=== PATIENT | female | born 2000 | race Caucasian/White ===

== ENCOUNTER 2018-10-02 16:36 | Emergency (ER) | payer OTHER ==
[~2018-10-02 16:36] MED LIST: ONDA4TAB97 PO; OXYC-865 PO; PRED20TA6 PO
--- NOTE | 2018-10-02 16:48 | ER Report ---
History and Physical Time Seen By MD: 16:48 Hx. of Stated Complaint: lump in armpit HPI/ROS CHIEF COMPLAINT: Lump in left axilla HISTORY OF PRESENT ILLNESS: 18-year-old female patient presents to the emergency room with complaint of a lump in her left axilla. Patient states that she has had this for the past 2 weeks. She states over the last week the pain has gotten worse. She states the pain started to run down the left arm. She states she has pain with movement of the arm. She denies having any numbness tingling in the fingers. She states she is taken ibuprofen with no improvement. Patient states she has use warm compresses which has seemed to help a little bit. Allergies: Coded Allergies: acetaminophen (Verified Allergy, Intermediate, rash, 10/02/18) oxycodone (Verified Allergy, Intermediate, rash, 10/02/18) Home Meds Active Scripts Cephalexin 500 Mg Tab (KEFLEX 500 MG TAB) 500 Mg Tablet, 500 MG PO Q6H, #28 TAB Prov:JUAN STOKES 10/02/18 Discontinued Scripts Prednisone (PREDNISONE) 20 Mg Tablet, 60 MG PO QDAY, #12 Prov:CUCA LIZ MD 11/01/16 Ondansetron Hcl (ZOFRAN) 4 Mg Tablet, 4 MG PO Q4H PRN for NAUSEA/VOMITING, #12 TAB Prov:NAY AMAYA DO 10/31/16 Oxycodone Hcl/Acetaminophen (PERCOCET 5-325 MG TABLET) 1 Each Tablet, 1 EACH PO Q4H PRN for PAIN, #12 TAB Prov:NAY AMAYA DO 10/31/16 Past Medical/Surgical History Patient denies any pertinent medical or surgical history. Reviewed Nurses Notes: Yes Hx Substance Use Disorder: No Constitutional Vital Sign - Last 24 Hours 10/02/18 10/02/18 10/02/18 10/02/18 16:42 16:42 16:45 17:00 Temp 98.5 Pulse 88 Resp 16 B/P (MAP) 130/75 (93) 130/75 108/72 (84) 106/74 (85) Pulse Ox 95 O2 Delivery Room Air 10/02/18 10/02/18 17:06 17:15 Pulse 85 B/P (MAP) 95/72 (80) Pulse Ox 97 Physical Exam General appearance: Alert no distress. Respiratory: Chest is non tender, lungs are clear to auscultation. Cardiac: Regular rate and rhythm. Skin: Patient does have a lump to the left axilla, no erythema noted around it, it is tender to touch. DIFFERENTIAL DIAGNOSIS: After history and physical exam differential diagnosis was considered for abscess, sebaceous cyst, enlarged lymph node. Medical Decision Making ED Course/Re-evaluation ED Course Patient was admitted to an exam room, history and physical were obtained. Differential diagnoses were considered. On examination patient does have a lump in the left axilla. It is tender to the touch. That was opened and drained as described below. Patient tolerated procedure well. A dressing was placed using a 2 x 2 gauze, bacitracin and covered with a Tegaderm. Patient did have a small amount of bleeding after dressing was placed. After time he discharge instructions I did go in and reevaluated, there is no additional bleeding noted. We will go ahead and discharge patient home at this time. Patient will be treated with Keflex 500 mg 4 times a day for 7 days. She is follow-up with her primary care provider with any concerns. She is to return to emergency room with any signs of infection. The patient and her significant other verbalized understanding and agreement with plan. Procedure: Abscess drainage. The patient's abscess was located on the left axilla. I obtained verbal consent from the patient to drain the abscess who was informed about the possibility of bleeding and pain. The abscess was incised with a scalpel and small amount of purulent drainage and some sebaceous material was expressed. The patient tolerated the procedure well. The procedure was performed by myself. Decision to Disposition Date: Oct 02, 2018 Decision to Disposition Time: 17:20 Depart Departure Latest Vital Signs Vital Signs Date Time Temp Pulse Resp B/P (MAP) Pulse Ox O2 Delivery O2 Flow Rate FiO2 10/02/18 17:15 95/72 (80) 10/02/18 17:06 85 97 10/02/18 16:42 98.5 16 Room Air Impression: Primary Impression: Sebaceous cyst of left axilla Condition: Improved Disposition: HOME OR SELF-CARE New Scripts Cephalexin 500 Mg Tab (KEFLEX 500 MG TAB) 500 Mg Tablet 500 MG PO Q6H, #28 TAB Prov: JUAN STOKES 10/02/18 Patient Instructions: Sebaceous cyst, infected: Additional Instructions: Limit activity by pain. Leave the dressing in place for 12-24 hours. Monitor for signs of infection; redness, swelling, heat, discharge. Return to the ER if condition worsens. JUAN STOKES Oct 02, 2018 16:48
[2018-10-02 17:15] VITALS: BP 95/72
[2018-10-02] MEDS ORDERED: CEPH500T7 PO (17:18)
== END 2018-10-02 17:37 | disposition home or self-care (01) ==
LOC: ER 16:49
DX: L72.3 Sebaceous cyst (principal)
CPT/HCPCS: 99283

== ENCOUNTER 2018-10-14 20:42 | Emergency (ER) | payer OTHER ==
[~2018-10-14 20:42] MED LIST changes: +CEPH500T7 PO
--- NOTE | 2018-10-14 21:06 | ER Report ---
History and Physical Time Seen By MD: 21:06 Hx. of Stated Complaint: CYST IN LEFT AXILLA STARTED TODAY HPI/ROS CHIEF COMPLAINT: Pain/lump in left axilla HISTORY OF PRESENT ILLNESS: This is a 18-year-old female. Pain started today left axilla associated with a small lump. She has recent history of a abscess that was drained in that area followed by antibiotics. This resolved completely. No other problems in the past. No note of any other lumps or masses in the throat, right axilla, or breasts. No fevers or chills. No drainage of fluid noted. Allergies: Coded Allergies: acetaminophen (Verified Allergy, Intermediate, rash, 10/14/18) oxycodone (Verified Allergy, Intermediate, rash, 10/14/18) Home Meds Active Scripts Doxycycline Hyclate (DOXYCYCLINE HYCLATE) 100 Mg Tablet, 100 MG PO BID, #20 TAB 0 Refills Prov:MANNY AGGARWAL MD 10/14/18 Discontinued Scripts Cephalexin 500 Mg Tab (KEFLEX 500 MG TAB) 500 Mg Tablet, 500 MG PO Q6H, #28 TAB Prov:JUAN STOKES 10/02/18 Reviewed Nurses Notes: Yes Hx Substance Use Disorder: No Constitutional Vital Sign - Last 24 Hours 10/14/18 10/14/18 10/14/18 10/14/18 20:53 21:00 21:15 21:30 Temp 98.1 Pulse 76 70 80 72 Resp 16 B/P (MAP) 125/84 118/76 (90) 102/68 (79) Pulse Ox 94 97 90 90 O2 Delivery Room Air 10/14/18 10/14/18 10/14/18 10/14/18 21:45 21:50 22:00 22:05 Pulse 75 72 76 B/P (MAP) 105/66 (79) Pulse Ox 97 95 96 10/14/18 10/14/18 10/14/18 10/14/18 22:20 22:30 22:35 22:50 Pulse 75 79 84 B/P (MAP) 98/61 (73) Pulse Ox 98 95 97 Physical Exam Gen.: Alert, no acute distress. Left axillary examined which shows small nodular area that is painful. Does not feel fluctuant. No redness of the skin and mild warmth. Medical Decision Making EKG/Imaging Imaging INDICATION: left axilla painful lump. DATE: 10/14/2018 10:04 PM. TECHNIQUE: EXTREMITY NON-VASCULAR LIMITED COMPARISON: None FINDINGS: And approximately 1.1 x 0.9 x 0.4 cm mixed echogenicity structure/mass in the left axilla demonstrates no internal vascularity. It is within the subcutaneous soft tissues superficial to the musculature. IMPRESSION: The mixed echogenicity structure/mass in the left axilla is nonspecific by ultrasound. It could be residual debris from recent sebaceous cyst removal, and the lack of vascularity argues against a neoplastic lesion, but recommend ultrasound follow-up to confirm resolution. Report Dictated By: Janine Sosa MD at 10/14/2018 10:04 PM ED Course/Re-evaluation ED Course Ultrasound negative for abscess. We'll start doxycycline as this could be induration with early infection. Recommended follow-up with general surgery as needed. See instructions below. Decision to Disposition Date: Oct 14, 2018 Decision to Disposition Time: 22:37 Depart Departure Latest Vital Signs Vital Signs Date Time Temp Pulse Resp B/P (MAP) Pulse Ox O2 Delivery O2 Flow Rate FiO2 10/14/18 22:50 84 97 10/14/18 22:30 98/61 (73) 10/14/18 20:53 98.1 16 Room Air Impression: Primary Impression: Mass of left axilla Condition: Improved Disposition: HOME OR SELF-CARE Referrals: JOAN VINCENT MD New Scripts Doxycycline Hyclate (DOXYCYCLINE HYCLATE) 100 Mg Tablet 100 MG PO BID, #20 TAB 0 Refills Prov: MANNY AGGARWAL MD 10/14/18 Patient Instructions: Abscess (ED) Additional Instructions: You do not have an abscess at this time, but pain and thickening of the tissue that could represent an infection or abscess forming. We recommend antibiotic, Doxycycline twice a day for 10 days. Apply hot packs to the area for about 20-30 minutes every hour. Follow-up with Dr. Vincent, general surgery, for further evaluation this week. Call his office in the morning for an appointment. MANNY AGGARWAL MD Oct 14, 2018 21:06
--- NOTE | 2018-10-14 22:20 | RADIOLOGY IMAGING REPORT ---
FACILITY: [facility] PATIENT NAME: Esmer Urbina : 2000 MR: [id number] V: [id number] EXAM DATE: ORDERING PHYSICIAN: MANNY AGGARWAL TECHNOLOGIST: Location: [facility] Patient: Esmer Urbina : 2000 Visit/Account:[id number] Date of Sevice: 10/14/2018 INDICATION: left axilla painful lump. DATE: 10/14/2018 10:04 PM. TECHNIQUE: EXTREMITY NON-VASCULAR LIMITED COMPARISON: None FINDINGS: And approximately 1.1 x 0.9 x 0.4 cm mixed echogenicity structure/mass in the left axilla d emonstrates no internal vascularity. It is within the subcutaneous soft tissues superficial to the mu sculature. IMPRESSION: The mixed echogenicity structure/mass in the left axilla is nonspecific by ultrasound. It could be re sidual debris from recent sebaceous cyst removal, and the lack of vascularity argues against a neopla stic lesion, but recommend ultrasound follow-up to confirm resolution. Report Dictated By: Janine Sosa MD at 10/14/2018 10:04 PM Report E-Signed By: Janine Sosa MD at 10/14/2018 10:16 PM WSN:[id number]
[2018-10-14 22:30] VITALS: BP 98/61
[2018-10-14] MEDS ORDERED: DOXY-179 PO (22:40)
[2018-10-14] MEDS ORDERED: DOXYCYCLINE HYCL 100 MG TAB PO ONE (22:40)
== END 2018-10-14 22:46 | disposition home or self-care (01) ==
LOC: ER 20:56
DX: R22.2 Localized swelling, mass and lump, trunk (principal)
CPT/HCPCS: 76882; 99284